=== PATIENT | male | born 1995 | race African-American/Black ===

== ENCOUNTER 2021-02-12 14:14 | Emergency (ER) | payer OTHER, SELFPAY ==
[2021-02-12 14:19] VITALS: BP 143/84; PULSE 79; RESP 14; TEMP 36.9; O2SAT 100; BMI 20.7
[2021-02-12 14:36] VITALS: TEMP 36.8
[2021-02-12] MEDS: Ibuprofen 800 MG TABLET PO (15:06)
[2021-02-12] MEDS: oxyCODONE HCl Immed Release 5 MG TABLET PO (15:06)
[2021-02-12] MEDS: Lidocaine HCl 1 % MPF 5 ML VIAL SUBCUT (15:41)
--- NOTE | 2021-02-12 16:13 | ED.DENTAL ---
HPI - Dental/Oral General Chief complaint: Dental/Oral Stated complaint: dental pain Time Seen by Provider: 02/12/21 14:41 Source: patient Mode of arrival: ambulatory Limitations: no limitations History of Present Illness HPI Narrative: 25-year-old male with poor dentition and multiple dental caries and multiple dental fractures presenting to the ED with complaints of left lower molar dental pain with left facial swelling. Reports that he has not made an appointment with an oral surgeon. Denies any other symptoms complaints or concerns at this time. MD Complaint: tooth pain Teeth map: 1. Onset (ago): day(s) (A few days worse today) Duration: constant Severity: severe Severity scale (1-10): >10 Relieving factors: nothing Exacerbating factors: chewing, cold, heat and drinking fluids Context: history of dental caries and poor dental care Associated symptoms: gum swelling Treatment prior to arrival: other (Patient reports he has been using multiple [id number] medications and no symptomatic relief) Related Data Previous Rx's Medication Instructions Recorded acetaminophen [Tylenol Extra 1,000 mg PO QID PRN #14 tab 02/12/21 Strength] clindamycin HCl 600 mg PO TID 10 Days #60 cap 02/12/21 ibuprofen 800 mg PO Q8H PRN #14 tab 02/12/21 oxycodone 5 mg PO BID PRN #10 tab 02/12/21 Allergies Allergy/AdvReac Type Severity Reaction Status Date / Time No Known Allergies Allergy Verified 02/12/21 14:18 Review of Systems Review of Systems: Constitutional : No Fever, No Chills, No changes in PO intake, No difficulty speaking, no recent dental procedure, no heat or cold intolerance while eating, no recent face trauma, ENT/Mouth : + Dental pain, + Jaw Pain, + Facial swelling, No Sore throat, No throat swelling, No swallowing difficulty, no change in voice, No drooling, no trismus, no bleeding, no lacerations, no tongue swelling, gum swelling, Eyes: No Eye Pain, No periorbital Swelling Cardiovascular : No Chest Pain, No SOB Respiratory : No Cough, No Sputum, No Wheezing, No Smoke Exposure, No Dyspnea Gastrointestinal : No Nausea, No Vomiting, No Diarrhea Genitourinary : No Dysuria Musculoskeletal : No Myalgias Skin : No rash, no facial swelling or redness, Neuro : No Weakness, No Numbness, No Headache Yes all other systems are reviewed and are negative FOR[facility]LY [facility] Past Medical History Attestation statement: The following information was validated with the patient. Medical History (Updated 02/12/21 @ 16:20 by RENNY Kumar) No known health problems Social History Social History Smoking Status: Current every day smoker Smoked in Last 30 Days: Yes Use of substances other than those prescribed or required for medical reasons: No Advance Directives: No Advance Directives Information Provided: Yes Physical Exam Vital Signs: Vital Signs: Last Vital Signs Temp 98.3 F 02/12/21 14:36 Pulse 79 02/12/21 14:19 Resp 14 02/12/21 14:19 BP 143/84 H 02/12/21 14:19 Pulse Ox 100 02/12/21 14:19 Body Mass Index 20.7 vital signs have been reviewed as normal and appeared to be correct. Blood pressure normal. Heart rate normal. Respiration rate normal. Temperature normal. Oxygen saturation normal. Appearance: Alert. Oriented X3. No acute distress. Head: Normal external exam. Normocephalic. Atraumatic. Eyes: PERRLA. EOMI. Conjunctiva and sclera normal. Eyelids normal. ENT: EAC normal. TM's Normal. Pharynx normal. Uvula midline. Moist mucous membranes. No trismus noted. No drooling noted. No muffled voice noted. Dentition: Patient with poor dentition throughout with multiple old fractured teeth with multiple dental caries. Patient with fluctuance to left lower gingiva consistent with dental abscess. Otherwise the rest of the Gingival within normal limits. Not consistent with peritonsillar abscess. No salivary duct obstruction noted. Neck: Normal inspection. Neck supple. FROM. No adenopathy. Thyroid Normal. No meningeal signs. No neck mass noted. Trachea midline. CVS: Normal heart rate and rhythm. Heart sound normal. No murmurs noted. Pulses normal throughout. Respiratory: No respiratory distress. Painless inspiration. Breath sounds normal. No wheezes/rales/rhonchi noted. Chest nontender. No accessory muscle usage noted or decreased air movement noted. Back: Full range of motion noted. Skin: Skin warm and dry. Normal skin color. Normal skin turgor. No rashes/lesions/lacerations noted. Extremities:Extremities exhibit normal range of motion. Extremities nontender. Neuro: Oriented X 3. No motor deficit. No sensory deficit. Reflexes normal. Course Course Course Narrative: Patient now status post dental abscess I&D. Patient tolerated procedure well. Moderate amounts of purulent drainage was drained. Will DC home with antibiotics and symptomatic treatment along with instructions to return if any new or worsening symptoms to follow up with primary care provider an oral surgeon. Patient understands agrees with this plan. Procedures Abscess I/D Site: oral (Left lower dental) Side (if applicable): left Local Anesthetic: lidocaine 1% Amount of anesthesia used (mL): 4 Technique: needle aspiration and incised with blade Amount of fluid expressed (mL): 10 Sent for culture/gram staining?: No Irrigation: Yes Packing used?: none Complications: other (No complications) MDM - Dental/Oral Medical Records Attestation: I reviewed the patient's medical records. Critical Care Time Critical Care Time Critical Care Time: Yes Total Critical Care Time: 60 Attestation: I personally attest to this time spent taking care of the patient Discharge Plan Discharge Clinical Impression: Toothache, Dental caries, Gingival abscess, Dental abscess Patient Disposition: Home, Self-Care Instructions: Dental Abscess (ED), Toothache (ED) Additional Instructions: You should follow-up with her oral surgeon as soon as possible. Return if any new or worsening symptoms. Prescriptions: New clindamycin HCl 300 mg capsule 600 mg PO TID 10 Days Qty: 60 RF: 0 ibuprofen 800 mg tablet 800 mg PO Q8H PRN (Reason: pain) Qty: 14 RF: 0 acetaminophen [Tylenol Extra Strength] 500 mg tablet 1,000 mg PO QID PRN (Reason: fever or pain) Qty: 14 RF: 0 oxycodone 5 mg tablet 5 mg PO BID PRN (Reason: pain) Qty: 10 RF: 0 Referrals: Calixto Munoz, KIER BOILER-BC [Primary Care Provider] - 2 days Print Language: Syriac
[2021-02-12] MEDS: LORazepam 1 MG TABLET PO (16:36)
== END 2021-02-12 16:53 | disposition home or self-care (01) ==
PROVIDERS: Emergency Provider Emergency Medicine Emergency Medical Services; PCP Nurse Practitioner Family
DX: K05.319 Chronic periodontitis, localized, unspecified severity (principal); K04.7 Periapical abscess without sinus; K08.89 Other specified disorders of teeth and supporting structures; K02.9 Dental caries, unspecified
CPT/HCPCS: 41800; 99284; 99291